=== PATIENT | male | born 1950 | race Caucasian/White ===

== ENCOUNTER 2019-09-12 13:07 | Inpatient (IN) ==
[2019-09-12 15:37] LABS: Basophils # 0.1 10*3/uL (0.0-0.2); Basophils % 0.5 % (0.0-0.8); Eosinophils # 0.3 10*3/uL (0.0-0.87); Eosinophils % 2.6 % (0.00-10.9); Hematocrit 42.7 VOL% (42.0-52.0); Hemoglobin 14.1 GM/DL (14.0-18.0); Immature Granulocytes % 0.8 %; Lymphocytes # 1.3 10*3/uL (1.4-4.0); Lymphocytes % 10.1 % (21.2-54.2); Mean Corpuscular Volume 96.2 FL (87-102); Mean Platelet Volume 10.7 FL (9.6-12.0); Monocytes % 7.7 % (1.7-12.7); Neutrophils % 78.3 % (38.7-73.9); Platelet Count 197 T/CUMM (130-400); Red Blood Count 4.44 MC/CUMM (3.8-5.5); Red Cell Distribution Width 14.8 % (9.3-17.3); White Blood Count 12.5 T/CUMM (4-12)
[2019-09-12 15:45] LABS: Albumin 3.1 G/DL (3.4-5.0); Bilirubin,Total 0.4 MG/DL (0.2-1.0); Calcium 8.8 MG/DL (8.5-10.1); Osmolality,Calculated 276.1 MOS/KG (273-304); Total Protein 7.1 G/DL (6.4-8.3)
[2019-09-12 15:54] LABS: PT Patient Result 63.4 SECS (9.6-12.2)
[2019-09-12 15:55] LABS: INR 5.9
[2019-09-12 17:08] LABS: Apearance,Urine CLEAR (Clear); Bilirubin,Urine Negative (Negative); Blood, Urine Negative (Negative); Glucose,Urine (UA) Negative (Negative); Ketones,Urine Negative (Negative); Nitrite,Urine Negative (Negative); Protein,Urine Negative; RBC,Urine 1 /HPF (0-4); Squamous Epithelial Cell,Urine Occasional /HPF (0-10); Urine Color Colorless (Yellow); Urine Specific Gravity 1.005 (1.001-1.035); Urine Urobilinogen < 2.0 EU/DL (0.2-1.0); WBC,Urine 1 /HPF (0-6)
[2019-09-12] MEDS ORDERED: GLUCAGON 1 MG VIAL IM PRN ×2 (17:18)
[2019-09-12] MEDS ORDERED: ONDANSETRON 4 MG/2 ML VIAL IV PRN (17:18)
[2019-09-12] MEDS ORDERED: DOCUSATE SODIUM 100 MG CAPSULE PO PRN (17:18)
[2019-09-12] MEDS ORDERED: DEXTROSE 50% 25 GM/50 ML VIAL IV PRN (17:18)
[2019-09-12] MEDS ORDERED: DEXTROSE 10% 250 ML BAG IV PRN (17:18)
[2019-09-12] MEDS ORDERED: diphenhydrAMINE CAP 25 MG CAPSULE PO PRN (17:18)
[2019-09-12] MEDS ORDERED: BISACODYL 5 MG TABLET PO PRN (17:18)
[2019-09-12] MEDS ORDERED: hydrALAZINE 20 MG/1 ML VIAL IV PRN (18:13)
[2019-09-12] MEDS: INSULIN LISPRO 100 UNIT/ML SUBCUT SCH (23:24)
[2019-09-12] MEDS: MORPHINE 4 MG/1 ML VIAL IV PRN (23:25)
[2019-09-13 06:35] LABS: Basophils # 0.1 10*3/uL (0.0-0.2); Basophils % 0.5 % (0.0-0.8); Eosinophils # 0.3 10*3/uL (0.0-0.87); Eosinophils % 3.1 % (0.00-10.9); Hematocrit 38.5 VOL% (42.0-52.0); Immature Granulocytes % 0.6 %; Immature Granulocytes Absolute 0.06 #; Lymphocytes # 1.7 10*3/uL (1.4-4.0); Lymphocytes % 16.2 % (21.2-54.2); Mean Corpuscular HGB Conc 33.8 GM/DL (32-36); Mean Corpuscular Volume 95.1 FL (87-102); Mean Platelet Volume 11.2 FL (9.6-12.0); Monocytes % 10.6 % (1.7-12.7); Platelet Count 183 T/CUMM (130-400); Red Blood Count 4.05 MC/CUMM (3.8-5.5); Red Cell Distribution Width 15.1 % (9.3-17.3); White Blood Count 10.2 T/CUMM (4-12)
[2019-09-13 07:10] LABS: Albumin 2.6 G/DL (3.4-5.0); Bilirubin,Total 0.7 MG/DL (0.2-1.0); Calcium 8.2 MG/DL (8.5-10.1); Thyroid Stimulating Hormone 4.55 uIU/ml (0.358-3.74); Total Protein 6.3 G/DL (6.4-8.3)
[2019-09-13] MEDS: INSULIN LISPRO 100 UNIT/ML SUBCUT SCH ×4 (09:42→20:33)
[2019-09-13] MEDS: PANTOPRAZOLE 40 MG TABLET PO SCH (09:44)
[2019-09-13] MEDS: MORPHINE 4 MG/1 ML VIAL IV PRN ×2 (09:44→18:56)
[2019-09-13] MEDS: buPROPion SR 150 MG TABLET PO SCH ×2 (09:44→20:33)
[2019-09-13] MEDS: atenoloL 25 MG TABLET PO SCH (09:45)
[2019-09-13] MEDS: ARIPiprazole 5 MG TABLET PO SCH (09:45)
[2019-09-13] MEDS: DUTASTERIDE 0.5 MG CAPSULE PO SCH (09:45)
[2019-09-13] MEDS: allopurinoL 300 MG TABLET PO SCH (09:45)
[2019-09-13] MEDS: FUROSEMIDE 40 MG TABLET PO SCH (16:44)
[2019-09-13] MEDS ORDERED: VANCOMYCIN INJ 2,500 MG in SODIUM CHLORIDE 0.9% 500 ML IV ONE (17:00)
[2019-09-13] MEDS: ARIPiprazole 10 MG TABLET PO SCH (20:33)
[2019-09-13] MEDS: PREGABALIN 75 MG CAPSULE PO SCH (20:33)
[2019-09-14] MEDS: MORPHINE 4 MG/1 ML VIAL IV PRN ×3 (02:27→22:19)
[2019-09-14 06:04] LABS: Basophils # 0.1 10*3/uL (0.0-0.2); Basophils % 0.5 % (0.0-0.8); Eosinophils # 0.3 10*3/uL (0.0-0.87); Eosinophils % 2.8 % (0.00-10.9); Hematocrit 38.2 VOL% (42.0-52.0); Hemoglobin 12.6 GM/DL (14.0-18.0); Immature Granulocytes % 0.8 %; Lymphocytes # 1.8 10*3/uL (1.4-4.0); Lymphocytes % 14.3 % (21.2-54.2); Mean Corpuscular Volume 96.5 FL (87-102); Mean Platelet Volume 11.4 FL (9.6-12.0); Monocytes % 11.8 % (1.7-12.7); Neutrophils % 69.8 % (38.7-73.9); Platelet Count 174 T/CUMM (130-400); Red Blood Count 3.96 MC/CUMM (3.8-5.5); Red Cell Distribution Width 14.9 % (9.3-17.3); White Blood Count 12.3 T/CUMM (4-12)
[2019-09-14] MEDS: LEVOTHYROXINE 175 MCG TABLET PO SCH (06:10)
[2019-09-14 06:11] LABS: INR 1.6
[2019-09-14 06:21] LABS: Calcium 8.3 MG/DL (8.5-10.1); Osmolality,Calculated 274.1 MOS/KG (273-304)
[2019-09-14] MEDS: INSULIN LISPRO 100 UNIT/ML SUBCUT SCH ×4 (08:17→21:09)
[2019-09-14] MEDS: buPROPion SR 150 MG TABLET PO SCH ×2 (09:06→21:09)
[2019-09-14] MEDS: atenoloL 25 MG TABLET PO SCH (09:06)
[2019-09-14] MEDS: PANTOPRAZOLE 40 MG TABLET PO SCH (09:06)
[2019-09-14] MEDS: allopurinoL 300 MG TABLET PO SCH (09:06)
[2019-09-14] MEDS: FUROSEMIDE 40 MG TABLET PO SCH ×2 (09:06→16:31)
[2019-09-14] MEDS: DUTASTERIDE 0.5 MG CAPSULE PO SCH (09:06)
[2019-09-14] MEDS: ARIPiprazole 5 MG TABLET PO SCH (09:06)
[2019-09-14] MEDS: VANCOMYCIN INJ 2,000 MG in SODIUM CHLORIDE 0.9% 500 ML IV SCH (12:30)
[2019-09-14] MEDS: guaiFENesin 200 MG/10 ML UDCUP PO PRN (12:37)
[2019-09-14] MEDS: ARIPiprazole 10 MG TABLET PO SCH (21:08)
[2019-09-14] MEDS: PREGABALIN 75 MG CAPSULE PO SCH (21:09)
[2019-09-15] MEDS: IBUPROFEN 800 MG TABLET PO PRN ×2 (00:30→12:14)
[2019-09-15] MEDS: VANCOMYCIN INJ 2,000 MG in SODIUM CHLORIDE 0.9% 500 ML IV SCH ×2 (06:09→23:23)
[2019-09-15] MEDS: LEVOTHYROXINE 175 MCG TABLET PO SCH (06:10)
[2019-09-15 06:19] LABS: Calcium 8.5 MG/DL (8.5-10.1)
[2019-09-15] MEDS ORDERED: POTASSIUM CHLORIDE 20 MEQ TABLET PO ONE (08:28)
[2019-09-15] MEDS ORDERED: IBUPROFEN 800 MG TABLET PO SCH (09:00)
[2019-09-15] MEDS: MORPHINE 4 MG/1 ML VIAL IV PRN ×2 (09:59→20:39)
[2019-09-15] MEDS: INSULIN LISPRO 100 UNIT/ML SUBCUT SCH ×4 (09:59→20:38)
[2019-09-15] MEDS: allopurinoL 300 MG TABLET PO SCH (10:00)
[2019-09-15] MEDS: ARIPiprazole 5 MG TABLET PO SCH (10:01)
[2019-09-15] MEDS: buPROPion SR 150 MG TABLET PO SCH ×2 (10:01→20:38)
[2019-09-15] MEDS: PANTOPRAZOLE 40 MG TABLET PO SCH (10:01)
[2019-09-15] MEDS: FUROSEMIDE 40 MG TABLET PO SCH ×2 (10:01→17:08)
[2019-09-15] MEDS: DUTASTERIDE 0.5 MG CAPSULE PO SCH (10:01)
[2019-09-15] MEDS: atenoloL 25 MG TABLET PO SCH (10:02)
[2019-09-15] MEDS: PREGABALIN 75 MG CAPSULE PO SCH (20:38)
[2019-09-15] MEDS: ARIPiprazole 10 MG TABLET PO SCH (20:38)
[2019-09-15] MEDS: guaiFENesin/DM ER 600-30 MG TABLET PO PRN (21:20)
[2019-09-16] MEDS: MORPHINE 4 MG/1 ML VIAL IV PRN ×3 (02:47→21:18)
[2019-09-16] MEDS: LEVOTHYROXINE 175 MCG TABLET PO SCH (06:03)
[2019-09-16] MEDS: INSULIN LISPRO 100 UNIT/ML SUBCUT SCH ×4 (08:44→20:44)
[2019-09-16] MEDS: DUTASTERIDE 0.5 MG CAPSULE PO SCH (08:44)
[2019-09-16] MEDS: PANTOPRAZOLE 40 MG TABLET PO SCH (08:44)
[2019-09-16] MEDS: buPROPion SR 150 MG TABLET PO SCH ×2 (08:44→21:18)
[2019-09-16] MEDS: FUROSEMIDE 40 MG TABLET PO SCH ×2 (08:45→16:29)
[2019-09-16] MEDS: atenoloL 25 MG TABLET PO SCH (08:45)
[2019-09-16] MEDS: allopurinoL 300 MG TABLET PO SCH (08:45)
[2019-09-16] MEDS: ARIPiprazole 5 MG TABLET PO SCH (08:50)
[2019-09-16 09:21] LABS: Basophils # 0.1 10*3/uL (0.0-0.2); Basophils % 0.6 % (0.0-0.8); Eosinophils # 0.7 10*3/uL (0.0-0.87); Eosinophils % 6.3 % (0.00-10.9); Hematocrit 40.7 VOL% (42.0-52.0); Hemoglobin 13.3 GM/DL (14.0-18.0); Immature Granulocytes % 1.2 %; Immature Granulocytes Absolute 0.14 #; Lymphocytes # 1.4 10*3/uL (1.4-4.0); Lymphocytes % 12.6 % (21.2-54.2); Mean Corpuscular HGB Conc 32.7 GM/DL (32-36); Mean Corpuscular Volume 97.1 FL (87-102); Mean Platelet Volume 10.5 FL (9.6-12.0); Monocytes % 9.2 % (1.7-12.7); Neutrophils % 70.1 % (38.7-73.9); Platelet Count 180 T/CUMM (130-400); Red Blood Count 4.19 MC/CUMM (3.8-5.5); Red Cell Distribution Width 14.9 % (9.3-17.3); White Blood Count 11.4 T/CUMM (4-12)
[2019-09-16 09:40] LABS: INR 1.1; PT Patient Result 11.7 SECS (9.6-12.2)
[2019-09-16] MEDS ORDERED: MEROPENEM 2,000 MG in SODIUM CHLORIDE 0.9% 100 ML IV SCH (10:00)
[2019-09-16] MEDS: guaiFENesin/DM ER 600-30 MG TABLET PO PRN ×2 (15:24→21:18)
[2019-09-16] MEDS: guaiFENesin 200 MG/10 ML UDCUP PO PRN ×2 (16:30→21:17)
[2019-09-16] MEDS: IBUPROFEN 800 MG TABLET PO PRN (16:33)
[2019-09-16] MEDS ORDERED: VANCOMYCIN INJ 2,000 MG in SODIUM CHLORIDE 0.9% 500 ML IV SCH (18:00)
[2019-09-16] MEDS ORDERED: CEFEPIME 2,000 MG in SODIUM CHLORIDE 0.9% 100 ML IV SCH (18:00)
[2019-09-16] MEDS: ARIPiprazole 10 MG TABLET PO SCH (21:18)
[2019-09-16] MEDS: PREGABALIN 75 MG CAPSULE PO SCH (21:18)
[2019-09-16 21:30] VITALS: BP 135/71
== END 2019-09-16 23:18 | disposition hospice, home (50) | DRG 95 ==
LOC: N.2W 13:07 → N.ED 13:07 → N.EDINP 13:07 → SUPCPDRO 17:18 → SUATTDRO 17:18 → N.2W 19:30 → SUATTDRO 09-13 17:00 → N.5E 09-13 17:32
PROVIDERS: ADMIT Internal Medicine Geriatric Medicine; ATTEND Family Medicine

== ENCOUNTER 2019-09-26 23:37 | Inpatient (IN) ==
[2019-09-27] MEDS ORDERED: ONDANSETRON 4 MG/2 ML VIAL IV STA (00:03)
[2019-09-27] MEDS ORDERED: FUROSEMIDE 100 MG/10 ML VIAL IV STA (00:03)
[2019-09-27] MEDS ORDERED: methylPREDNISolone SOD SUC 125 MG/2 ML VIAL IV STA (00:03)
[2019-09-27] MEDS ORDERED: ALBUTEROL NEB SOLN 5 MG/ML 20 ML/BOTTLE CONT NEB SCH (00:30)
[2019-09-27 00:52] LABS: Pt O2 Delivery Device Other
[2019-09-27 00:54] LABS: ABG Base Excess 5.1 MMOL/L (-2.5-2.5); ABG Oxygen Saturation 98.8 % (95-100); ABG PCO2 56.1 MM HG (35-48); ABG PH 7.367 (7.35-7.45)
[2019-09-27 00:59] LABS: Basophils # 0.1 10*3/uL (0.0-0.2); Basophils % 0.5 % (0.0-0.8); Eosinophils # 0.5 10*3/uL (0.0-0.87); Eosinophils % 3.8 % (0.00-10.9); Hematocrit 40.5 VOL% (42.0-52.0); Hemoglobin 13.3 GM/DL (14.0-18.0); Immature Granulocytes % 0.7 %; Immature Granulocytes Absolute 0.09 #; Lymphocytes # 1.8 10*3/uL (1.4-4.0); Lymphocytes % 14.5 % (21.2-54.2); Mean Corpuscular HGB Conc 32.8 GM/DL (32-36); Mean Corpuscular Volume 97.8 FL (87-102); Mean Platelet Volume 10.9 FL (9.6-12.0); Monocytes % 8.7 % (1.7-12.7); Neutrophils % 71.8 % (38.7-73.9); Platelet Count 180 T/CUMM (130-400); Red Blood Count 4.14 MC/CUMM (3.8-5.5); Red Cell Distribution Width 15.2 % (9.3-17.3); White Blood Count 12.2 T/CUMM (4-12)
[2019-09-27 01:10] LABS: Albumin 2.9 G/DL (3.4-5.0); Bilirubin,Total 0.4 MG/DL (0.2-1.0); Calcium 8.9 MG/DL (8.5-10.1); Total Protein 6.8 G/DL (6.4-8.3)
[2019-09-27] MEDS ORDERED: ALUMINUM/MAGNES/SIMETH MAX STR 30 ML UDCUP PO PRN (02:13)
[2019-09-27] MEDS ORDERED: ONDANSETRON 4 MG/2 ML VIAL IV PRN (02:13)
[2019-09-27] MEDS ORDERED: NICOTINE 21 MG/24 HR PATCH TRANSDERM PRN (02:13)
[2019-09-27] MEDS ORDERED: DOCUSATE SODIUM 100 MG CAPSULE PO PRN (02:13)
[2019-09-27] MEDS ORDERED: ALBUTEROL 2.5 MG/3 ML NEB RESP TX PRN (02:13)
[2019-09-27] MEDS ORDERED: ZALEPLON 5 MG CAPSULE PO PRN (02:13)
[2019-09-27] MEDS ORDERED: DEXTROSE 50% 25 GM/50 ML VIAL IV PRN (02:13)
[2019-09-27] MEDS ORDERED: GLUCAGON 1 MG VIAL IM PRN (02:13)
[2019-09-27] MEDS ORDERED: hydrALAZINE 20 MG/1 ML VIAL IV PRN (02:13)
[2019-09-27] MEDS: ALBUTEROL/IPRATROPIUM 3 ML NEB RESP TX SCH ×6 (02:47→23:32)
[2019-09-27 02:57] LABS: Apearance,Urine CLEAR (Clear); Bilirubin,Urine Negative (Negative); Blood, Urine Negative (Negative); Glucose,Urine (UA) Negative (Negative); Hyaline Casts,Urine 3 /LPF (0-3); Ketones,Urine Negative (Negative); Mucus,Urine Occasional /LPF (Occasional); Nitrite,Urine Negative (Negative); Protein,Urine Negative; RBC,Urine 1 /HPF (0-4); Squamous Epithelial Cell,Urine Occasional /HPF (0-10); Urine Color Colorless (Yellow); Urine Specific Gravity 1.005 (1.001-1.035); Urine Urobilinogen < 2.0 EU/DL (0.2-1.0); WBC,Urine 1 /HPF (0-6)
[2019-09-27 04:47] LABS: Basophils # 0.1 10*3/uL (0.0-0.2); Basophils % 0.5 % (0.0-0.8); Eosinophils % 0.4 % (0.00-10.9); Hemoglobin 13.8 GM/DL (14.0-18.0); Lymphocytes # 0.5 10*3/uL (1.4-4.0); Lymphocytes % 4.3 % (21.2-54.2); Mean Corpuscular HGB Conc 32.9 GM/DL (32-36); Mean Corpuscular Volume 97.2 FL (87-102); Mean Platelet Volume 10.7 FL (9.6-12.0); Monocytes % 1.7 % (1.7-12.7); Neutrophils % 92.1 % (38.7-73.9); Platelet Count 177 T/CUMM (130-400); Red Blood Count 4.32 MC/CUMM (3.8-5.5); Red Cell Distribution Width 15.2 % (9.3-17.3); White Blood Count 10.5 T/CUMM (4-12)
[2019-09-27 05:08] LABS: Band Neutrophils 1 % (0-10); Hypochromasia 1+; Lymphocytes 6 % (20-55); Platelet Estimate Adequate; Segmented Neutrophils 93 % (50-85); Total Cells Counted 100
[2019-09-27] MEDS: MORPHINE 4 MG/1 ML VIAL IV PRN ×3 (05:09→22:55)
[2019-09-27 05:17] LABS: Albumin 3.3 G/DL (3.4-5.0); Bilirubin,Total 1.7 MG/DL (0.2-1.0); Calcium 9.1 MG/DL (8.5-10.1); Risk Ratio 2.31; Total Protein 7.3 G/DL (6.4-8.3)
[2019-09-27] MEDS: INSULIN LISPRO 100 UNIT/ML SUBCUT SCH ×6 (07:33→21:11)
[2019-09-27] MEDS ORDERED: VANCOMYCIN INJ 1,000 MG in SODIUM CHLORIDE 0.9% 250 ML IV SCH (08:00)
[2019-09-27] MEDS ORDERED: PANTOPRAZOLE 40 MG TABLET PO SCH (09:00)
[2019-09-27] MEDS: FUROSEMIDE 40 MG/4 ML VIAL IV SCH ×2 (09:01→16:56)
[2019-09-27] MEDS: APIXABAN 5 MG TABLET PO SCH ×2 (09:02→21:11)
[2019-09-27] MEDS ORDERED: VANCOMYCIN INJ 1,000 MG in SODIUM CHLORIDE 0.9% 250 ML IV ONE (10:30)
[2019-09-27] MEDS: guaiFENesin/DM ER 600-30 MG TABLET PO PRN ×2 (14:03→22:32)
[2019-09-27] MEDS: cefTRIAXone 2,000 MG in SYRINGE 1 EACH IV SCH (15:09)
[2019-09-27] MEDS ORDERED: ETOMIDATE 20 MG/10 ML VIAL IV ONE ×2 (23:07→23:12)
[2019-09-27] MEDS ORDERED: VECURONIUM 10 MG VIAL IV ONE ×2 (23:07→23:13)
[2019-09-28 00:52] LABS: ABG Base Excess 6.8 MMOL/L (-2.5-2.5); ABG HCO3 30.5 MMOL/L (20-26); ABG Oxygen Saturation 96.1 % (95-100); ABG PO2 95.4 MM HG (80-95); ABG TCO2 32.1 MMOL/L (23-27); Allen Test Positive; Pt O2 Delivery Device Ventilator
[2019-09-28 00:56] LABS: ABG PCO2 75.7 MM HG (35-48)
[2019-09-28] MEDS: fentaNYL INJ 1,250 MCG in SODIUM CHLORIDE 0.9% 225 ML IV PRN ×4 (01:15→18:50)
[2019-09-28] MEDS: ALBUTEROL/IPRATROPIUM 3 ML NEB RESP TX SCH ×5 (03:00→19:10)
[2019-09-28 03:34] LABS: ABG Base Excess 9.6 MMOL/L (-2.5-2.5); ABG HCO3 33.4 MMOL/L (20-26); ABG Oxygen Saturation 99.5 % (95-100); ABG PCO2 56.9 MM HG (35-48); ABG PH 7.417 (7.35-7.45); ABG TCO2 31.4 MMOL/L (23-27); Allen Test Positive; Pt O2 Delivery Device Ventilator
[2019-09-28 04:44] LABS: Basophils # 0.1 10*3/uL (0.0-0.2); Basophils % 0.4 % (0.0-0.8); Eosinophils # 0.1 10*3/uL (0.0-0.87); Eosinophils % 0.4 % (0.00-10.9); Hematocrit 42.5 VOL% (42.0-52.0); Immature Granulocytes % 0.6 %; Immature Granulocytes Absolute 0.09 #; Lymphocytes # 1.6 10*3/uL (1.4-4.0); Lymphocytes % 10.7 % (21.2-54.2); Mean Corpuscular HGB Conc 32.9 GM/DL (32-36); Mean Corpuscular Volume 96.8 FL (87-102); Mean Platelet Volume 10.5 FL (9.6-12.0); Monocytes % 11.4 % (1.7-12.7); Neutrophils % 76.5 % (38.7-73.9); Platelet Count 216 T/CUMM (130-400); Red Blood Count 4.39 MC/CUMM (3.8-5.5); Red Cell Distribution Width 14.9 % (9.3-17.3)
[2019-09-28] MEDS: VANCOMYCIN INJ 2,000 MG in SODIUM CHLORIDE 0.9% 500 ML IV SCH (06:10)
[2019-09-28] MEDS: INSULIN LISPRO 100 UNIT/ML SUBCUT SCH ×7 (07:51→21:39)
[2019-09-28] MEDS: FUROSEMIDE 40 MG/4 ML VIAL IV SCH ×2 (08:22→21:40)
[2019-09-28] MEDS: APIXABAN 5 MG TABLET PO SCH ×2 (08:22→21:45)
[2019-09-28] MEDS: OMEPRAZOLE ODT 20 MG TABLET PO SCH (08:22)
[2019-09-28] MEDS: methylPREDNISolone SOD SUC 40 MG/1 ML VIAL IV SCH ×3 (09:50→21:55)
[2019-09-28] MEDS: cefTRIAXone 2,000 MG in SYRINGE 1 EACH IV SCH (15:12)
[2019-09-29] MEDS: ALBUTEROL/IPRATROPIUM 3 ML NEB RESP TX SCH ×4 (00:54→19:18)
[2019-09-29] MEDS: VANCOMYCIN INJ 2,000 MG in SODIUM CHLORIDE 0.9% 500 ML IV SCH ×2 (00:54→18:05)
[2019-09-29] MEDS: fentaNYL INJ 1,250 MCG in SODIUM CHLORIDE 0.9% 225 ML IV PRN ×3 (02:25→21:35)
[2019-09-29 03:11] LABS: Allen Test Positive; Pt O2 Delivery Device Ventilator
[2019-09-29 03:12] LABS: ABG Base Excess 8.3 MMOL/L (-2.5-2.5); ABG HCO3 34.5 MMOL/L (20-26); ABG Oxygen Saturation 96.5 % (95-100); ABG PCO2 54.6 MM HG (35-48); ABG PH 7.419 (7.35-7.45); ABG PO2 90.2 MM HG (80-95); ABG TCO2 36.2 MMOL/L (23-27)
[2019-09-29] MEDS: methylPREDNISolone SOD SUC 40 MG/1 ML VIAL IV SCH ×4 (04:32→21:37)
[2019-09-29 06:15] LABS: Calcium 8.9 MG/DL (8.5-10.1); Osmolality,Calculated 287.1 MOS/KG (273-304)
[2019-09-29] MEDS: INSULIN LISPRO 100 UNIT/ML SUBCUT SCH ×7 (07:59→20:54)
[2019-09-29] MEDS: FUROSEMIDE 40 MG/4 ML VIAL IV SCH ×2 (09:18→20:53)
[2019-09-29] MEDS: APIXABAN 5 MG TABLET PO SCH ×2 (09:18→20:52)
[2019-09-29] MEDS: OMEPRAZOLE ODT 20 MG TABLET PO SCH (09:18)
[2019-09-29] MEDS: cefTRIAXone 2,000 MG in SYRINGE 1 EACH IV SCH (14:40)
[2019-09-29 22:44] LABS: ABG Base Excess 7.4 MMOL/L (-2.5-2.5); ABG HCO3 31.2 MMOL/L (20-26); ABG Oxygen Saturation 98.2 % (95-100); ABG PCO2 55.6 MM HG (35-48); ABG TCO2 29.3 MMOL/L (23-27); Allen Test Positive; Pt O2 Delivery Device Venturi Mask
[2019-09-30] MEDS: ALBUTEROL/IPRATROPIUM 3 ML NEB RESP TX SCH ×4 (00:47→19:31)
[2019-09-30] MEDS: INSULIN LISPRO 100 UNIT/ML SUBCUT SCH ×9 (00:58→20:48)
[2019-09-30 03:12] LABS: ABG Base Excess 8.9 MMOL/L (-2.5-2.5); ABG HCO3 32.6 MMOL/L (20-26); ABG PCO2 55.4 MM HG (35-48); ABG PH 7.418 (7.35-7.45); ABG PO2 92.1 MM HG (80-95); ABG TCO2 30.5 MMOL/L (23-27); Allen Test Positive
[2019-09-30] MEDS: methylPREDNISolone SOD SUC 40 MG/1 ML VIAL IV SCH ×3 (04:58→18:09)
[2019-09-30 05:01] LABS: Calcium 9.1 MG/DL (8.5-10.1); Prealbumin 25.4 MG/DL (20-40)
[2019-09-30] MEDS: OMEPRAZOLE ODT 20 MG TABLET PO SCH (10:03)
[2019-09-30] MEDS: APIXABAN 5 MG TABLET PO SCH ×2 (10:03→20:48)
[2019-09-30] MEDS: FUROSEMIDE 40 MG/4 ML VIAL IV SCH ×2 (10:05→20:48)
[2019-09-30] MEDS: VANCOMYCIN INJ 2,000 MG in SODIUM CHLORIDE 0.9% 500 ML IV SCH (11:06)
[2019-09-30] MEDS ORDERED: GLUCAGON 1 MG VIAL IM PRN (11:31)
[2019-09-30] MEDS ORDERED: DEXTROSE 10% 250 ML BAG IV PRN (11:31)
[2019-09-30] MEDS ORDERED: INSULIN GLARGINE 100 UNIT/ML SUBCUT SCH ×2 (11:35→21:00)
[2019-09-30] MEDS: NYSTATIN CREAM 15 GM TUBE TOP SCH ×2 (15:47→20:50)
[2019-09-30] MEDS: cefTRIAXone 2,000 MG in SYRINGE 1 EACH IV SCH (15:47)
[2019-10-01] MEDS: ALBUTEROL/IPRATROPIUM 3 ML NEB RESP TX SCH ×4 (00:23→19:47)
[2019-10-01] MEDS: methylPREDNISolone SOD SUC 40 MG/1 ML VIAL IV SCH ×3 (01:10→17:32)
[2019-10-01] MEDS: oxyCODONE IR 5 MG TABLET PO PRN ×2 (02:35→17:46)
[2019-10-01 04:17] LABS: Allen Test Positive; Pt O2 Delivery Device BIPAP
[2019-10-01 04:20] LABS: ABG Base Excess 6.3 MMOL/L (-2.5-2.5); ABG PCO2 49.5 MM HG (35-48); ABG PH 7.428 (7.35-7.45); ABG PO2 61.2 MM HG (80-95); ABG TCO2 33.5 MMOL/L (23-27)
[2019-10-01 04:21] LABS: ABG Oxygen Saturation 91.8 % (95-100)
[2019-10-01] MEDS: VANCOMYCIN INJ 2,000 MG in SODIUM CHLORIDE 0.9% 500 ML IV SCH (06:12)
[2019-10-01 06:46] LABS: Calcium 8.8 MG/DL (8.5-10.1); Osmolality,Calculated 284.8 MOS/KG (273-304)
[2019-10-01] MEDS ORDERED: MEPERIDINE 50 MG/1 ML VIAL IM ONE (07:00)
[2019-10-01] MEDS ORDERED: PROMETHAZINE 25 MG/1 ML VIAL IM ONE (07:00)
[2019-10-01] MEDS ORDERED: MIDAZOLAM 2 MG/2 ML VIAL ONE (07:29)
[2019-10-01] MEDS ORDERED: LIDOCAINE 1% 20 ML VIAL MISC INJ ONE (07:30)
[2019-10-01] MEDS ORDERED: MIDAZOLAM 2 MG/2 ML VIAL IV ONE (07:30)
[2019-10-01] MEDS ORDERED: LIDOCAINE 2% 20 ML VIAL RESP TX ONE (07:30)
[2019-10-01] MEDS ORDERED: LIDOCAINE 2% VISCOUS 100 ML BOTTLE SWISH/SPIT ONE (07:30)
[2019-10-01] MEDS: FUROSEMIDE 40 MG/4 ML VIAL IV SCH ×2 (08:34→20:23)
[2019-10-01] MEDS: INSULIN LISPRO 100 UNIT/ML SUBCUT SCH ×8 (08:35→20:56)
[2019-10-01] MEDS: NYSTATIN CREAM 15 GM TUBE TOP SCH ×2 (08:36→20:24)
[2019-10-01] MEDS ORDERED: INSULIN GLARGINE 100 UNIT/ML SUBCUT SCH (09:00)
[2019-10-01] MEDS: DORNASE ALFA 2.5 MG/2.5 ML VIAL RESP TX SCH ×2 (09:18→19:59)
[2019-10-01] MEDS: OMEPRAZOLE ODT 20 MG TABLET PO SCH (10:36)
[2019-10-01] MEDS: APIXABAN 5 MG TABLET PO SCH ×2 (10:36→20:23)
[2019-10-01] MEDS ORDERED: POLYETHYLENE GLYCOL POWDER 17 GM PACK PO PRN (11:35)
[2019-10-01] MEDS: cefTRIAXone 2,000 MG in SYRINGE 1 EACH IV SCH (14:02)
[2019-10-01] MEDS: ARIPiprazole 5 MG TABLET PO SCH (20:23)
[2019-10-02] MEDS: ALBUTEROL/IPRATROPIUM 3 ML NEB RESP TX SCH ×4 (00:49→19:58)
[2019-10-02] MEDS: methylPREDNISolone SOD SUC 40 MG/1 ML VIAL IV SCH (01:07)
[2019-10-02] MEDS: guaiFENesin 200 MG/10 ML UDCUP PO PRN (04:59)
[2019-10-02] MEDS: oxyCODONE IR 5 MG TABLET PO PRN ×2 (04:59→21:43)
[2019-10-02 05:10] LABS: Basophils % 0.1 % (0.0-0.8); Hematocrit 43.7 VOL% (42.0-52.0); Hemoglobin 14.6 GM/DL (14.0-18.0); Immature Granulocytes % 0.9 %; Immature Granulocytes Absolute 0.09 #; Lymphocytes # 0.5 10*3/uL (1.4-4.0); Lymphocytes % 4.6 % (21.2-54.2); Mean Corpuscular HGB Conc 33.4 GM/DL (32-36); Mean Corpuscular Volume 95.6 FL (87-102); Mean Platelet Volume 11.2 FL (9.6-12.0); Monocytes % 5.7 % (1.7-12.7); Neutrophils % 88.7 % (38.7-73.9); Platelet Count 197 T/CUMM (130-400); Red Blood Count 4.57 MC/CUMM (3.8-5.5); Red Cell Distribution Width 14.1 % (9.3-17.3); White Blood Count 10.4 T/CUMM (4-12)
[2019-10-02 05:33] LABS: Calcium 8.7 MG/DL (8.5-10.1); Osmolality,Calculated 293.5 MOS/KG (273-304)
[2019-10-02 06:05] LABS: Lymphocytes 2 % (20-55); Platelet Estimate Adequate; Segmented Neutrophils 93 % (50-85); Total Cells Counted 100
[2019-10-02 06:06] LABS: Hypochromasia 1+
[2019-10-02] MEDS: LEVOTHYROXINE 150 MCG TABLET PO SCH (06:23)
[2019-10-02] MEDS: DORNASE ALFA 2.5 MG/2.5 ML VIAL RESP TX SCH ×2 (07:22→19:58)
[2019-10-02] MEDS ORDERED: INSULIN GLARGINE 100 UNIT/ML SUBCUT SCH (09:00)
[2019-10-02] MEDS: INSULIN GLARGINE 100 UNIT/ML SUBCUT SCH (09:18)
[2019-10-02] MEDS: INSULIN LISPRO 100 UNIT/ML SUBCUT SCH ×8 (09:18→21:42)
[2019-10-02] MEDS: allopurinoL 300 MG TABLET PO SCH (09:19)
[2019-10-02] MEDS: TAMSULOSIN 0.4 MG CAPSULE PO SCH (09:19)
[2019-10-02] MEDS: OMEPRAZOLE ODT 20 MG TABLET PO SCH (09:19)
[2019-10-02] MEDS: APIXABAN 5 MG TABLET PO SCH ×2 (09:19→21:43)
[2019-10-02] MEDS: guaiFENesin/DM ER 600-30 MG TABLET PO PRN (09:19)
[2019-10-02] MEDS: VANCOMYCIN INJ 2,000 MG in SODIUM CHLORIDE 0.9% 500 ML IV SCH (09:20)
[2019-10-02] MEDS: FUROSEMIDE 40 MG/4 ML VIAL IV SCH ×2 (09:20→21:43)
[2019-10-02] MEDS: NYSTATIN CREAM 15 GM TUBE TOP SCH ×2 (09:20→21:49)
[2019-10-02] MEDS: cefTRIAXone 2,000 MG in SYRINGE 1 EACH IV SCH (13:04)
[2019-10-02] MEDS: methylPREDNISolone SOD SUC 125 MG/2 ML VIAL IV SCH (18:23)
[2019-10-02] MEDS: ARIPiprazole 5 MG TABLET PO SCH (21:43)
[2019-10-03] MEDS: guaiFENesin 200 MG/10 ML UDCUP PO PRN ×2 (02:25→09:36)
[2019-10-03] MEDS: ALBUTEROL/IPRATROPIUM 3 ML NEB RESP TX SCH ×4 (02:29→18:56)
[2019-10-03] MEDS: oxyCODONE IR 5 MG TABLET PO PRN (02:55)
[2019-10-03 03:37] LABS: Calcium 8.6 MG/DL (8.5-10.1); Osmolality,Calculated 295.4 MOS/KG (273-304); Prealbumin 27.9 MG/DL (20-40)
[2019-10-03] MEDS: methylPREDNISolone SOD SUC 125 MG/2 ML VIAL IV SCH ×2 (05:38→17:39)
[2019-10-03] MEDS: LEVOTHYROXINE 150 MCG TABLET PO SCH (05:38)
[2019-10-03] MEDS: DORNASE ALFA 2.5 MG/2.5 ML VIAL RESP TX SCH ×2 (08:09→19:03)
[2019-10-03] MEDS: guaiFENesin/DM ER 600-30 MG TABLET PO PRN (09:34)
[2019-10-03] MEDS: OMEPRAZOLE ODT 20 MG TABLET PO SCH (09:34)
[2019-10-03] MEDS: FUROSEMIDE 40 MG/4 ML VIAL IV SCH ×2 (09:34→17:33)
[2019-10-03] MEDS: TAMSULOSIN 0.4 MG CAPSULE PO SCH (09:34)
[2019-10-03] MEDS: allopurinoL 300 MG TABLET PO SCH (09:34)
[2019-10-03] MEDS: APIXABAN 5 MG TABLET PO SCH (09:34)
[2019-10-03] MEDS: NYSTATIN CREAM 15 GM TUBE TOP SCH (09:34)
[2019-10-03] MEDS: INSULIN GLARGINE 100 UNIT/ML SUBCUT SCH (09:38)
[2019-10-03] MEDS: INSULIN LISPRO 100 UNIT/ML SUBCUT SCH ×6 (09:41→17:33)
[2019-10-03] MEDS: VANCOMYCIN INJ 2,000 MG in SODIUM CHLORIDE 0.9% 500 ML IV SCH (09:50)
[2019-10-03] MEDS: cefTRIAXone 2,000 MG in SYRINGE 1 EACH IV SCH (13:24)
[2019-10-03 18:05] VITALS: BP 135/78
[2019-10-03] MEDS ORDERED: INSULIN GLARGINE 100 UNIT/ML SUBCUT ONE (21:00)
[2019-10-04] MEDS ORDERED: INSULIN GLARGINE 100 UNIT/ML SUBCUT SCH (09:00)
== END 2019-10-03 20:02 | DRG 208 ==
LOC: EDBD → EDUNIT# → N.ED 23:37 → SUATTDRO 09-27 02:13 → N.CC 09-27 03:09 → N.5E 09-30 18:25
PROVIDERS: ADMIT Internal Medicine; ATTEND Internal Medicine

== ENCOUNTER 2019-11-08 20:20 | Inpatient (IN) ==
[2019-11-08] MEDS ORDERED: AZITHROMYCIN INJ 500 MG in SODIUM CHLORIDE 0.9% 250 ML IV ONE (22:56)
[2019-11-08] MEDS ORDERED: FUROSEMIDE 40 MG/4 ML VIAL IV ONE (22:57)
[2019-11-09] MEDS ORDERED: DEXTROSE 50% 25 GM/50 ML VIAL IV PRN ×2 (01:13)
[2019-11-09] MEDS ORDERED: diphenhydrAMINE CAP 25 MG CAPSULE PO PRN (01:13)
[2019-11-09] MEDS ORDERED: PROMETHAZINE 25 MG/1 ML VIAL IM PRN (01:13)
[2019-11-09] MEDS ORDERED: DOCUSATE SODIUM 100 MG CAPSULE PO PRN (01:13)
[2019-11-09] MEDS ORDERED: ZALEPLON 5 MG CAPSULE PO PRN (01:13)
[2019-11-09] MEDS ORDERED: ONDANSETRON 4 MG/2 ML VIAL IV PRN (01:13)
[2019-11-09] MEDS ORDERED: hydrALAZINE 20 MG/1 ML VIAL IV PRN (01:13)
[2019-11-09] MEDS ORDERED: NICOTINE 21 MG/24 HR PATCH TRANSDERM PRN (01:13)
[2019-11-09] MEDS ORDERED: GLUCAGON 1 MG VIAL IM PRN (01:13)
[2019-11-09] MEDS ORDERED: AZITHROMYCIN 250 MG TABLET PO ONE (02:00)
[2019-11-09] MEDS: cefTRIAXone 1,000 MG in SYRINGE 1 EACH IV SCH (02:15)
[2019-11-09] MEDS: MORPHINE 4 MG/1 ML VIAL IV PRN ×3 (05:20→19:21)
[2019-11-09] MEDS: PANTOPRAZOLE 40 MG TABLET PO SCH (08:43)
[2019-11-09] MEDS: FUROSEMIDE 40 MG/4 ML VIAL IV SCH ×2 (08:43→15:16)
[2019-11-09] MEDS: INSULIN LISPRO 100 UNIT/ML SUBCUT SCH ×4 (08:43→21:00)
[2019-11-09 10:23] LABS: Basophils # 0.1 10*3/uL (0.0-0.2); Basophils % 0.4 % (0.0-0.8); Eosinophils # 0.2 10*3/uL (0.0-0.87); Eosinophils % 1.7 % (0.00-10.9); Hematocrit 35.8 VOL% (42.0-52.0); Hemoglobin 11.2 GM/DL (14.0-18.0); Immature Granulocytes % 1.5 %; Immature Granulocytes Absolute 0.21 #; Lymphocytes % 14.4 % (21.2-54.2); Mean Corpuscular HGB Conc 31.3 GM/DL (32-36); Mean Corpuscular Volume 98.1 FL (87-102); Mean Platelet Volume 10.2 FL (9.6-12.0); NRBC # 0.03 10*3/uL; Platelet Count 256 T/CUMM (130-400); Red Blood Count 3.65 MC/CUMM (3.8-5.5); White Blood Count 14.1 T/CUMM (4-12)
[2019-11-09] MEDS: TAMSULOSIN 0.4 MG CAPSULE PO SCH ×2 (10:25→21:00)
[2019-11-09] MEDS: ARIPiprazole 5 MG TABLET PO SCH ×2 (10:25→20:59)
[2019-11-09] MEDS: GLIMEPIRIDE 4 MG TABLET PO SCH (10:25)
[2019-11-09] MEDS: ERGOCALCIFEROL 50,000 UNIT CAPSULE PO SCH (10:25)
[2019-11-09] MEDS: APIXABAN 5 MG TABLET PO SCH ×2 (10:26→21:00)
[2019-11-09] MEDS: allopurinoL 300 MG TABLET PO SCH (10:26)
[2019-11-09] MEDS: atenoloL 25 MG TABLET PO SCH (10:26)
[2019-11-09] MEDS: DUTASTERIDE 0.5 MG CAPSULE PO SCH (10:26)
[2019-11-09] MEDS: SEMAGLUTIDE 0.5 MG SUBCUT SCH (10:56)
[2019-11-09 11:01] LABS: Albumin 2.3 G/DL (3.4-5.0); Bilirubin,Total 0.7 MG/DL (0.2-1.0); Osmolality,Calculated 278.7 MOS/KG (273-304); Total Protein 5.2 G/DL (6.4-8.3)
[2019-11-09] MEDS ORDERED: MAGNESIUM SULF RIDER 2 GM in PREMIX 1 EACH IV ONE (11:40)
[2019-11-09] MEDS: rOPINIRole 1 MG TABLET PO SCH (21:00)
[2019-11-09] MEDS: INSULIN GLARGINE 100 UNIT/ML SUBCUT SCH (21:00)
[2019-11-09] MEDS: AMITRIPTYLINE 25 MG TABLET PO SCH (21:00)
[2019-11-10] MEDS: cefTRIAXone 1,000 MG in SYRINGE 1 EACH IV SCH (02:56)
[2019-11-10 05:36] LABS: Basophils % 0.3 % (0.0-0.8); Eosinophils # 0.2 10*3/uL (0.0-0.87); Eosinophils % 1.5 % (0.00-10.9); Hematocrit 35.8 VOL% (42.0-52.0); Hemoglobin 11.4 GM/DL (14.0-18.0); Immature Granulocytes % 1.8 %; Immature Granulocytes Absolute 0.25 #; Lymphocytes # 1.9 10*3/uL (1.4-4.0); Lymphocytes % 13.9 % (21.2-54.2); Mean Corpuscular HGB Conc 31.8 GM/DL (32-36); Mean Corpuscular Volume 96.5 FL (87-102); Monocytes % 8.3 % (1.7-12.7); NRBC # 0.02 10*3/uL; Neutrophils % 74.2 % (38.7-73.9); Platelet Count 263 T/CUMM (130-400); Red Blood Count 3.71 MC/CUMM (3.8-5.5); White Blood Count 13.9 T/CUMM (4-12)
[2019-11-10 06:05] LABS: Albumin 2.2 G/DL (3.4-5.0); Bilirubin,Total 0.9 MG/DL (0.2-1.0); Calcium 8.9 MG/DL (8.5-10.1); Total Protein 6.3 G/DL (6.4-8.3)
[2019-11-10] MEDS: LEVOTHYROXINE 175 MCG TABLET PO SCH (06:32)
[2019-11-10] MEDS ORDERED: POTASSIUM CHLORIDE 20 MEQ TABLET PO ONE (07:53)
[2019-11-10] MEDS: ARIPiprazole 5 MG TABLET PO SCH ×2 (08:15→20:45)
[2019-11-10] MEDS: TAMSULOSIN 0.4 MG CAPSULE PO SCH ×2 (08:15→20:45)
[2019-11-10] MEDS: APIXABAN 5 MG TABLET PO SCH ×2 (08:15→20:45)
[2019-11-10] MEDS: atenoloL 25 MG TABLET PO SCH (08:15)
[2019-11-10] MEDS: DUTASTERIDE 0.5 MG CAPSULE PO SCH (08:15)
[2019-11-10] MEDS: PANTOPRAZOLE 40 MG TABLET PO SCH (08:15)
[2019-11-10] MEDS: GLIMEPIRIDE 4 MG TABLET PO SCH (08:15)
[2019-11-10] MEDS: allopurinoL 300 MG TABLET PO SCH (08:15)
[2019-11-10] MEDS: INSULIN LISPRO 100 UNIT/ML SUBCUT SCH ×4 (08:36→20:28)
[2019-11-10] MEDS: CEFEPIME 1,000 MG in SODIUM CHLORIDE 0.9% 100 ML IV SCH ×2 (12:55→20:24)
[2019-11-10] MEDS: MORPHINE 4 MG/1 ML VIAL IV PRN (12:55)
[2019-11-10] MEDS: VANCOMYCIN INJ 2,000 MG in SODIUM CHLORIDE 0.9% 500 ML IV SCH (14:25)
[2019-11-10] MEDS: INSULIN GLARGINE 100 UNIT/ML SUBCUT SCH (20:28)
[2019-11-10] MEDS: rOPINIRole 1 MG TABLET PO SCH (20:45)
[2019-11-10] MEDS: AMITRIPTYLINE 25 MG TABLET PO SCH (20:45)
[2019-11-11] MEDS: CEFEPIME 1,000 MG in SODIUM CHLORIDE 0.9% 100 ML IV SCH ×4 (00:56→20:41)
[2019-11-11 01:21] LABS: Basophils % 0.3 % (0.0-0.8); Eosinophils # 0.3 10*3/uL (0.0-0.87); Eosinophils % 2.6 % (0.00-10.9); Hematocrit 34.4 VOL% (42.0-52.0); Hemoglobin 10.8 GM/DL (14.0-18.0); Immature Granulocytes % 1.9 %; Immature Granulocytes Absolute 0.22 #; Lymphocytes # 2.1 10*3/uL (1.4-4.0); Lymphocytes % 17.5 % (21.2-54.2); Mean Corpuscular HGB Conc 31.4 GM/DL (32-36); Mean Corpuscular Volume 97.5 FL (87-102); Mean Platelet Volume 9.7 FL (9.6-12.0); Monocytes % 8.8 % (1.7-12.7); Neutrophils % 68.9 % (38.7-73.9); Platelet Count 249 T/CUMM (130-400); Red Blood Count 3.53 MC/CUMM (3.8-5.5); Red Cell Distribution Width 15.2 % (9.3-17.3); White Blood Count 11.9 T/CUMM (4-12)
[2019-11-11] MEDS: MORPHINE 4 MG/1 ML VIAL IV PRN ×2 (01:27→14:34)
[2019-11-11 01:44] LABS: Albumin 1.9 G/DL (3.4-5.0); Bilirubin,Total 0.6 MG/DL (0.2-1.0); Calcium 8.5 MG/DL (8.5-10.1); Osmolality,Calculated 271.1 MOS/KG (273-304)
[2019-11-11] MEDS: LEVOTHYROXINE 175 MCG TABLET PO SCH (05:48)
[2019-11-11] MEDS: TAMSULOSIN 0.4 MG CAPSULE PO SCH ×2 (08:28→20:38)
[2019-11-11] MEDS: APIXABAN 5 MG TABLET PO SCH ×2 (08:28→20:38)
[2019-11-11] MEDS: allopurinoL 300 MG TABLET PO SCH (08:28)
[2019-11-11] MEDS: atenoloL 25 MG TABLET PO SCH (08:28)
[2019-11-11] MEDS: DUTASTERIDE 0.5 MG CAPSULE PO SCH (08:28)
[2019-11-11] MEDS: ARIPiprazole 5 MG TABLET PO SCH ×2 (08:28→20:37)
[2019-11-11] MEDS: GLIMEPIRIDE 4 MG TABLET PO SCH (08:28)
[2019-11-11] MEDS: FUROSEMIDE 40 MG TABLET PO SCH ×2 (08:31→17:05)
[2019-11-11] MEDS: INSULIN LISPRO 100 UNIT/ML SUBCUT SCH ×4 (10:38→20:41)
[2019-11-11] MEDS: VANCOMYCIN INJ 2,000 MG in SODIUM CHLORIDE 0.9% 500 ML IV SCH (14:15)
[2019-11-11] MEDS: guaiFENesin/DM ER 600-30 MG TABLET PO PRN (20:38)
[2019-11-11] MEDS: AMITRIPTYLINE 25 MG TABLET PO SCH (20:38)
[2019-11-11] MEDS: rOPINIRole 1 MG TABLET PO SCH (20:38)
[2019-11-11] MEDS: INSULIN GLARGINE 100 UNIT/ML SUBCUT SCH (20:42)
[2019-11-12] MEDS: CEFEPIME 1,000 MG in SODIUM CHLORIDE 0.9% 100 ML IV SCH ×4 (02:07→20:46)
[2019-11-12] MEDS: LEVOTHYROXINE 175 MCG TABLET PO SCH (05:54)
[2019-11-12 06:00] LABS: Basophils # 0.1 10*3/uL (0.0-0.2); Basophils % 0.6 % (0.0-0.8); Eosinophils # 0.3 10*3/uL (0.0-0.87); Eosinophils % 2.9 % (0.00-10.9); Hemoglobin 10.8 GM/DL (14.0-18.0); Immature Granulocytes % 3.3 %; Immature Granulocytes Absolute 0.37 #; Lymphocytes # 1.8 10*3/uL (1.4-4.0); Lymphocytes % 16.1 % (21.2-54.2); Mean Corpuscular HGB Conc 31.8 GM/DL (32-36); Mean Corpuscular Volume 95.2 FL (87-102); Mean Platelet Volume 10.5 FL (9.6-12.0); Monocytes % 8.2 % (1.7-12.7); Neutrophils % 68.9 % (38.7-73.9); Platelet Count 229 T/CUMM (130-400); Red Blood Count 3.57 MC/CUMM (3.8-5.5); Red Cell Distribution Width 14.9 % (9.3-17.3); White Blood Count 11.1 T/CUMM (4-12)
[2019-11-12 06:25] LABS: Bilirubin,Total 0.8 MG/DL (0.2-1.0); Calcium 8.7 MG/DL (8.5-10.1); Osmolality,Calculated 270.2 MOS/KG (273-304); Total Protein 6.1 G/DL (6.4-8.3)
[2019-11-12] MEDS: FUROSEMIDE 40 MG TABLET PO SCH ×2 (08:05→15:43)
[2019-11-12] MEDS: DUTASTERIDE 0.5 MG CAPSULE PO SCH (08:06)
[2019-11-12] MEDS: atenoloL 25 MG TABLET PO SCH (08:06)
[2019-11-12] MEDS: APIXABAN 5 MG TABLET PO SCH ×2 (08:06→20:45)
[2019-11-12] MEDS: TAMSULOSIN 0.4 MG CAPSULE PO SCH ×2 (08:06→20:45)
[2019-11-12] MEDS: GLIMEPIRIDE 4 MG TABLET PO SCH (08:06)
[2019-11-12] MEDS: allopurinoL 300 MG TABLET PO SCH (08:06)
[2019-11-12] MEDS: INSULIN LISPRO 100 UNIT/ML SUBCUT SCH ×4 (08:38→20:45)
[2019-11-12] MEDS: ARIPiprazole 5 MG TABLET PO SCH ×2 (08:39→20:45)
[2019-11-12] MEDS: VANCOMYCIN INJ 2,000 MG in SODIUM CHLORIDE 0.9% 500 ML IV SCH (12:24)
[2019-11-12] MEDS: MORPHINE 4 MG/1 ML VIAL IV PRN ×2 (15:44→20:47)
[2019-11-12] MEDS: AMITRIPTYLINE 25 MG TABLET PO SCH (20:45)
[2019-11-12] MEDS: INSULIN GLARGINE 100 UNIT/ML SUBCUT SCH (20:46)
[2019-11-12] MEDS: rOPINIRole 1 MG TABLET PO SCH (20:47)
[2019-11-12] MEDS: guaiFENesin/DM ER 600-30 MG TABLET PO PRN (20:48)
[2019-11-13] MEDS: CEFEPIME 1,000 MG in SODIUM CHLORIDE 0.9% 100 ML IV SCH ×4 (02:00→21:21)
[2019-11-13] MEDS: LEVOTHYROXINE 175 MCG TABLET PO SCH (05:53)
[2019-11-13 07:01] LABS: Basophils # 0.1 10*3/uL (0.0-0.2); Basophils % 0.5 % (0.0-0.8); Eosinophils # 0.4 10*3/uL (0.0-0.87); Eosinophils % 3.3 % (0.00-10.9); Hematocrit 37.6 VOL% (42.0-52.0); Hemoglobin 11.7 GM/DL (14.0-18.0); Immature Granulocytes % 3.2 %; Immature Granulocytes Absolute 0.38 #; Lymphocytes # 2.4 10*3/uL (1.4-4.0); Lymphocytes % 20.6 % (21.2-54.2); Mean Corpuscular HGB Conc 31.1 GM/DL (32-36); Mean Corpuscular Volume 97.2 FL (87-102); Monocytes % 8.4 % (1.7-12.7); Platelet Count 307 T/CUMM (130-400); Red Blood Count 3.87 MC/CUMM (3.8-5.5); Red Cell Distribution Width 14.9 % (9.3-17.3); White Blood Count 11.8 T/CUMM (4-12)
[2019-11-13 07:20] LABS: Calcium 9.1 MG/DL (8.5-10.1)
[2019-11-13] MEDS: INSULIN LISPRO 100 UNIT/ML SUBCUT SCH ×4 (09:09→21:20)
[2019-11-13] MEDS: GLIMEPIRIDE 4 MG TABLET PO SCH (09:09)
[2019-11-13] MEDS: APIXABAN 5 MG TABLET PO SCH ×2 (09:09→21:20)
[2019-11-13] MEDS: TAMSULOSIN 0.4 MG CAPSULE PO SCH ×2 (09:09→21:20)
[2019-11-13] MEDS: FUROSEMIDE 40 MG TABLET PO SCH ×2 (09:09→16:03)
[2019-11-13] MEDS: ARIPiprazole 5 MG TABLET PO SCH ×2 (09:09→21:20)
[2019-11-13] MEDS: DUTASTERIDE 0.5 MG CAPSULE PO SCH (09:09)
[2019-11-13] MEDS: allopurinoL 300 MG TABLET PO SCH (09:10)
[2019-11-13] MEDS: atenoloL 25 MG TABLET PO SCH (09:10)
[2019-11-13] MEDS: MORPHINE 4 MG/1 ML VIAL IV PRN ×2 (09:10→21:21)
[2019-11-13] MEDS: VANCOMYCIN INJ 2,000 MG in SODIUM CHLORIDE 0.9% 500 ML IV SCH (12:52)
[2019-11-13] MEDS: AMITRIPTYLINE 25 MG TABLET PO SCH (21:20)
[2019-11-13] MEDS: rOPINIRole 1 MG TABLET PO SCH (21:21)
[2019-11-13] MEDS: INSULIN GLARGINE 100 UNIT/ML SUBCUT SCH (21:21)
[2019-11-14] MEDS: CEFEPIME 1,000 MG in SODIUM CHLORIDE 0.9% 100 ML IV SCH ×4 (03:30→22:23)
[2019-11-14 05:50] LABS: Basophils # 0.1 10*3/uL (0.0-0.2); Basophils % 0.7 % (0.0-0.8); Eosinophils # 0.3 10*3/uL (0.0-0.87); Eosinophils % 2.8 % (0.00-10.9); Hematocrit 35.7 VOL% (42.0-52.0); Hemoglobin 11.3 GM/DL (14.0-18.0); Immature Granulocytes Absolute 0.29 #; Lymphocytes # 2.1 10*3/uL (1.4-4.0); Lymphocytes % 22.2 % (21.2-54.2); Mean Corpuscular HGB Conc 31.7 GM/DL (32-36); Mean Platelet Volume 9.9 FL (9.6-12.0); Neutrophils % 62.3 % (38.7-73.9); Platelet Count 286 T/CUMM (130-400); Red Blood Count 3.68 MC/CUMM (3.8-5.5); Red Cell Distribution Width 15.1 % (9.3-17.3); White Blood Count 9.5 T/CUMM (4-12)
[2019-11-14] MEDS: LEVOTHYROXINE 175 MCG TABLET PO SCH (05:54)
[2019-11-14 06:22] LABS: Osmolality,Calculated 272.7 MOS/KG (273-304)
[2019-11-14] MEDS: INSULIN LISPRO 100 UNIT/ML SUBCUT SCH ×4 (09:30→22:22)
[2019-11-14] MEDS: FUROSEMIDE 40 MG TABLET PO SCH ×2 (09:30→16:25)
[2019-11-14] MEDS: ARIPiprazole 5 MG TABLET PO SCH ×2 (09:31→20:35)
[2019-11-14] MEDS: GLIMEPIRIDE 4 MG TABLET PO SCH (09:31)
[2019-11-14] MEDS: DUTASTERIDE 0.5 MG CAPSULE PO SCH (09:31)
[2019-11-14] MEDS: APIXABAN 5 MG TABLET PO SCH ×2 (09:32→20:35)
[2019-11-14] MEDS: TAMSULOSIN 0.4 MG CAPSULE PO SCH ×2 (09:32→20:35)
[2019-11-14] MEDS: atenoloL 25 MG TABLET PO SCH (09:33)
[2019-11-14] MEDS: allopurinoL 300 MG TABLET PO SCH (09:34)
[2019-11-14] MEDS: POTASSIUM CHLORIDE 20 MEQ TABLET PO SCH ×2 (10:00→20:35)
[2019-11-14] MEDS: MORPHINE 4 MG/1 ML VIAL IV PRN ×2 (11:41→20:35)
[2019-11-14] MEDS: rOPINIRole 1 MG TABLET PO SCH (20:35)
[2019-11-14] MEDS: AMITRIPTYLINE 25 MG TABLET PO SCH (20:35)
[2019-11-14] MEDS: guaiFENesin/DM ER 600-30 MG TABLET PO PRN (20:35)
[2019-11-14] MEDS: INSULIN GLARGINE 100 UNIT/ML SUBCUT SCH (22:22)
[2019-11-15] MEDS: CEFEPIME 1,000 MG in SODIUM CHLORIDE 0.9% 100 ML IV SCH ×4 (04:27→20:03)
[2019-11-15] MEDS: LEVOTHYROXINE 175 MCG TABLET PO SCH (06:13)
[2019-11-15] MEDS: DUTASTERIDE 0.5 MG CAPSULE PO SCH (08:10)
[2019-11-15] MEDS: allopurinoL 300 MG TABLET PO SCH (08:10)
[2019-11-15] MEDS: FUROSEMIDE 40 MG TABLET PO SCH ×2 (08:10→15:55)
[2019-11-15] MEDS: APIXABAN 5 MG TABLET PO SCH ×2 (08:10→20:02)
[2019-11-15] MEDS: TAMSULOSIN 0.4 MG CAPSULE PO SCH ×2 (08:10→20:02)
[2019-11-15] MEDS: ARIPiprazole 5 MG TABLET PO SCH ×2 (08:10→20:02)
[2019-11-15] MEDS: atenoloL 25 MG TABLET PO SCH (08:10)
[2019-11-15] MEDS: GLIMEPIRIDE 4 MG TABLET PO SCH (08:10)
[2019-11-15] MEDS: INSULIN LISPRO 100 UNIT/ML SUBCUT SCH ×4 (09:18→22:02)
[2019-11-15] MEDS: MORPHINE 4 MG/1 ML VIAL IV PRN ×2 (16:30→21:45)
[2019-11-15 17:24] LABS: Calcium 8.9 MG/DL (8.5-10.1)
[2019-11-15] MEDS: AMITRIPTYLINE 25 MG TABLET PO SCH (20:02)
[2019-11-15] MEDS: rOPINIRole 1 MG TABLET PO SCH (20:03)
[2019-11-15] MEDS: INSULIN GLARGINE 100 UNIT/ML SUBCUT SCH (20:03)
[2019-11-16] MEDS: CEFEPIME 1,000 MG in SODIUM CHLORIDE 0.9% 100 ML IV SCH ×4 (05:35→21:39)
[2019-11-16 05:54] LABS: Calcium 9.7 MG/DL (8.5-10.1); Osmolality,Calculated 275.7 MOS/KG (273-304)
[2019-11-16] MEDS: LEVOTHYROXINE 175 MCG TABLET PO SCH (05:59)
[2019-11-16 06:40] LABS: Basophils # 0.1 10*3/uL (0.0-0.2); Basophils % 0.7 % (0.0-0.8); Eosinophils # 0.4 10*3/uL (0.0-0.87); Eosinophils % 3.4 % (0.00-10.9); Hematocrit 38.9 VOL% (42.0-52.0); Hemoglobin 12.3 GM/DL (14.0-18.0); Immature Granulocytes % 2.3 %; Immature Granulocytes Absolute 0.27 #; Lymphocytes # 2.8 10*3/uL (1.4-4.0); Lymphocytes % 23.7 % (21.2-54.2); Mean Corpuscular HGB Conc 31.6 GM/DL (32-36); Mean Corpuscular Volume 94.9 FL (87-102); Monocytes % 11.8 % (1.7-12.7); NRBC # 0.02 10*3/uL; Neutrophils % 58.1 % (38.7-73.9); Platelet Count 270 T/CUMM (130-400); White Blood Count 11.6 T/CUMM (4-12)
[2019-11-16] MEDS: INSULIN LISPRO 100 UNIT/ML SUBCUT SCH ×3 (07:30→17:25)
[2019-11-16] MEDS: FUROSEMIDE 40 MG TABLET PO SCH ×2 (10:30→18:02)
[2019-11-16] MEDS: DUTASTERIDE 0.5 MG CAPSULE PO SCH (10:30)
[2019-11-16] MEDS: APIXABAN 5 MG TABLET PO SCH ×2 (10:30→21:30)
[2019-11-16] MEDS: ERGOCALCIFEROL 50,000 UNIT CAPSULE PO SCH (10:31)
[2019-11-16] MEDS: TAMSULOSIN 0.4 MG CAPSULE PO SCH ×2 (10:31→21:30)
[2019-11-16] MEDS: GLIMEPIRIDE 4 MG TABLET PO SCH (10:31)
[2019-11-16] MEDS: atenoloL 25 MG TABLET PO SCH (10:31)
[2019-11-16] MEDS: ARIPiprazole 5 MG TABLET PO SCH ×2 (10:31→21:30)
[2019-11-16] MEDS: allopurinoL 300 MG TABLET PO SCH (10:31)
[2019-11-16] MEDS: SEMAGLUTIDE 0.5 MG SUBCUT SCH (10:32)
[2019-11-16] MEDS: METHOCARBAMOL 750 MG TABLET PO SCH ×2 (14:38→21:39)
[2019-11-16] MEDS: AMITRIPTYLINE 25 MG TABLET PO SCH (21:30)
[2019-11-16] MEDS: rOPINIRole 1 MG TABLET PO SCH (21:39)
[2019-11-17] MEDS: INSULIN GLARGINE 100 UNIT/ML SUBCUT SCH ×2 (01:47→20:45)
[2019-11-17] MEDS: INSULIN LISPRO 100 UNIT/ML SUBCUT SCH ×4 (01:47→20:45)
[2019-11-17] MEDS: CEFEPIME 1,000 MG in SODIUM CHLORIDE 0.9% 100 ML IV SCH ×4 (03:00→20:45)
[2019-11-17] MEDS ORDERED: FUROSEMIDE 80 MG TABLET ONE (08:05)
[2019-11-17] MEDS: GLIMEPIRIDE 4 MG TABLET PO SCH (08:49)
[2019-11-17] MEDS: allopurinoL 300 MG TABLET PO SCH (08:49)
[2019-11-17] MEDS: atenoloL 25 MG TABLET PO SCH (08:49)
[2019-11-17] MEDS: TAMSULOSIN 0.4 MG CAPSULE PO SCH ×2 (08:49→20:45)
[2019-11-17] MEDS: FUROSEMIDE 40 MG TABLET PO SCH (08:50)
[2019-11-17] MEDS: ARIPiprazole 5 MG TABLET PO SCH ×2 (08:52→20:45)
[2019-11-17] MEDS: METHOCARBAMOL 750 MG TABLET PO SCH ×2 (08:55→20:45)
[2019-11-17] MEDS: APIXABAN 5 MG TABLET PO SCH ×2 (08:55→20:45)
[2019-11-17] MEDS: DUTASTERIDE 0.5 MG CAPSULE PO SCH (08:55)
[2019-11-17] MEDS: AMITRIPTYLINE 25 MG TABLET PO SCH (20:45)
[2019-11-17] MEDS: rOPINIRole 1 MG TABLET PO SCH (20:45)
[2019-11-17] MEDS: MORPHINE 4 MG/1 ML VIAL IV PRN (20:45)
[2019-11-17] MEDS: LEVOTHYROXINE 175 MCG TABLET PO SCH (22:36)
[2019-11-18] MEDS: CEFEPIME 1,000 MG in SODIUM CHLORIDE 0.9% 100 ML IV SCH ×2 (03:34→10:00)
[2019-11-18 04:31] LABS: Basophils # 0.1 10*3/uL (0.0-0.2); Basophils % 0.7 % (0.0-0.8); Eosinophils # 0.3 10*3/uL (0.0-0.87); Eosinophils % 3.7 % (0.00-10.9); Hematocrit 39.7 VOL% (42.0-52.0); Hemoglobin 12.6 GM/DL (14.0-18.0); Immature Granulocytes % 2.6 %; Immature Granulocytes Absolute 0.23 #; Lymphocytes # 2.8 10*3/uL (1.4-4.0); Lymphocytes % 31.6 % (21.2-54.2); Mean Corpuscular HGB Conc 31.7 GM/DL (32-36); Mean Corpuscular Volume 95.4 FL (87-102); Mean Platelet Volume 10.1 FL (9.6-12.0); Monocytes % 8.2 % (1.7-12.7); Neutrophils % 53.2 % (38.7-73.9); Platelet Count 283 T/CUMM (130-400); Red Blood Count 4.16 MC/CUMM (3.8-5.5); White Blood Count 8.7 T/CUMM (4-12)
[2019-11-18 04:40] LABS: Calcium 9.5 MG/DL (8.5-10.1); Osmolality,Calculated 276.5 MOS/KG (273-304)
[2019-11-18] MEDS: LEVOTHYROXINE 175 MCG TABLET PO SCH (05:54)
[2019-11-18] MEDS: INSULIN LISPRO 100 UNIT/ML SUBCUT SCH ×4 (09:36→20:45)
[2019-11-18] MEDS: ARIPiprazole 5 MG TABLET PO SCH ×2 (09:36→20:44)
[2019-11-18] MEDS: DUTASTERIDE 0.5 MG CAPSULE PO SCH (09:37)
[2019-11-18] MEDS: FUROSEMIDE 40 MG TABLET PO SCH (09:37)
[2019-11-18] MEDS: METHOCARBAMOL 750 MG TABLET PO SCH ×2 (09:37→20:43)
[2019-11-18] MEDS: APIXABAN 5 MG TABLET PO SCH ×2 (09:37→20:44)
[2019-11-18] MEDS: allopurinoL 300 MG TABLET PO SCH (09:37)
[2019-11-18] MEDS: atenoloL 25 MG TABLET PO SCH (09:37)
[2019-11-18] MEDS: GLIMEPIRIDE 4 MG TABLET PO SCH (09:37)
[2019-11-18] MEDS: TAMSULOSIN 0.4 MG CAPSULE PO SCH ×2 (09:37→20:43)
[2019-11-18] MEDS ORDERED: TUBERCULIN SKIN TEST 0.1 ML SYRINGE INTRADERM ONE (16:00)
[2019-11-18] MEDS: MORPHINE 4 MG/1 ML VIAL IV PRN ×2 (17:13→23:18)
[2019-11-18] MEDS: rOPINIRole 1 MG TABLET PO SCH (20:44)
[2019-11-18] MEDS: AMITRIPTYLINE 25 MG TABLET PO SCH (20:44)
[2019-11-18] MEDS: INSULIN GLARGINE 100 UNIT/ML SUBCUT SCH (20:45)
[2019-11-19] MEDS: LEVOTHYROXINE 175 MCG TABLET PO SCH (05:46)
[2019-11-19] MEDS: METHOCARBAMOL 750 MG TABLET PO SCH ×2 (09:29→20:20)
[2019-11-19] MEDS: allopurinoL 300 MG TABLET PO SCH (09:29)
[2019-11-19] MEDS: FUROSEMIDE 40 MG TABLET PO SCH (09:29)
[2019-11-19] MEDS: GLIMEPIRIDE 4 MG TABLET PO SCH (09:30)
[2019-11-19] MEDS: APIXABAN 5 MG TABLET PO SCH ×2 (09:30→20:13)
[2019-11-19] MEDS: ARIPiprazole 5 MG TABLET PO SCH ×2 (09:31→20:13)
[2019-11-19] MEDS: TAMSULOSIN 0.4 MG CAPSULE PO SCH ×2 (09:31→20:13)
[2019-11-19] MEDS: DUTASTERIDE 0.5 MG CAPSULE PO SCH (09:31)
[2019-11-19] MEDS: atenoloL 25 MG TABLET PO SCH (09:35)
[2019-11-19] MEDS: INSULIN LISPRO 100 UNIT/ML SUBCUT SCH ×4 (09:37→20:14)
[2019-11-19] MEDS: AMITRIPTYLINE 25 MG TABLET PO SCH (20:13)
[2019-11-19] MEDS: rOPINIRole 1 MG TABLET PO SCH (20:13)
[2019-11-19] MEDS: INSULIN GLARGINE 100 UNIT/ML SUBCUT SCH (20:14)
[2019-11-19] MEDS: MORPHINE 4 MG/1 ML VIAL IV PRN (20:20)
[2019-11-20] MEDS: MORPHINE 4 MG/1 ML VIAL IV PRN (02:20)
[2019-11-20] MEDS: LEVOTHYROXINE 175 MCG TABLET PO SCH (05:43)
[2019-11-20 07:02] LABS: Calcium 9.3 MG/DL (8.5-10.1)
[2019-11-20] MEDS: atenoloL 25 MG TABLET PO SCH (08:58)
[2019-11-20] MEDS: TAMSULOSIN 0.4 MG CAPSULE PO SCH (08:58)
[2019-11-20] MEDS: allopurinoL 300 MG TABLET PO SCH (08:58)
[2019-11-20] MEDS: ARIPiprazole 5 MG TABLET PO SCH (08:59)
[2019-11-20] MEDS: FUROSEMIDE 40 MG TABLET PO SCH (08:59)
[2019-11-20] MEDS: METHOCARBAMOL 750 MG TABLET PO SCH (08:59)
[2019-11-20] MEDS: APIXABAN 5 MG TABLET PO SCH (08:59)
[2019-11-20] MEDS: DUTASTERIDE 0.5 MG CAPSULE PO SCH (08:59)
[2019-11-20] MEDS: GLIMEPIRIDE 4 MG TABLET PO SCH (08:59)
[2019-11-20] MEDS: INSULIN LISPRO 100 UNIT/ML SUBCUT SCH (09:22)
[2019-11-20 11:49] VITALS: BP 137/72
== END 2019-11-20 12:37 | DRG 291 ==
LOC: SUATTDRO 22:13 → N.2W 22:13 → N.TELES 11-18 14:54
PROVIDERS: ADMIT Internal Medicine; ATTEND Internal Medicine